=== PATIENT | female | born 1980 | race African-American/Black ===

== ENCOUNTER 2016-06-26 23:34 | Emergency (ER) | payer MEDICAID, OTHER ==
[~2016-06-26] VITALS: Ht 165.1 cm; Wt 110.0 kg
[~2016-06-26 23:34] MED LIST: ADVA230A PO; ALBU8I INH; BACL10TA PO; LISI10 PO; OLAN15 PO; SYNT125T PO; TRAZ100T4 PO
[2016-06-26 23:44] VITALS: BP 119/75; PULSE 75; RESP 18; TEMP 98.4; O2SAT 98
[2016-06-26] MEDS ORDERED: TRAZ300T2 PO (23:53)
[2016-06-26] MEDS ORDERED: HYDR-3583 PO (23:53)
[2016-06-26] MEDS ORDERED: LEVO.125 PO (23:53)
[2016-06-26] MEDS ORDERED: LISI10TA3 PO (23:53)
[2016-06-27 00:43] LABS: AUTOMATED NEUTROPHIL # 3.1 TH/MM3 (1.8-7.7); BASOPHIL # 0.1 TH/MM3 (0-0.2); BASOPHIL % 1.1 % (0.0-2.0); EOSINOPHIL # 0.1 TH/MM3 (0-0.4); EOSINOPHIL % 1.4 % (0.0-4.0); HEMATOCRIT 35.2 % (35.0-46.0); HEMO FLAGS DIFF FINAL; LYMPH % 32.7 % (9.0-44.0); LYMPHOCYTE # 1.7 TH/MM3 (1.0-4.8); MEAN CELL VOLUME 88.7 FL (80.0-100.0); MEAN CORPUSCULAR HEMOGLOBIN 30.8 PG (27.0-34.0); MEAN CORPUSCULAR HGB CONC 34.7 % (32.0-36.0); MONO % 5.8 % (0.0-8.0); PLATELET COUNT 189 TH/MM3 (150-450); RED BLOOD COUNT 3.97 MIL/MM3 (4.00-5.30); RED CELL DISTRIBUTION WIDTH 13.3 % (11.6-17.2); WHITE BLOOD COUNT 5.3 TH/MM3 (4.0-11.0)
[2016-06-27 00:57] LABS: ACETAMINOPHEN LESS THAN 2.0 MCG/ML (10.0-30.0); ALT (GPT) 13 U/L (10-53); ANION GAP 6 MEQ/L (5-15); AST (GOT) 16 U/L (15-37); BICARBONATE 28.7 MEQ/L (21.0-32.0); BLOOD UREA NITROGEN 9 MG/DL (7-18); CHLORIDE 103 MEQ/L (98-107); GLOMERULAR FILTRATION RATE 78 ML/MIN (>89); POTASSIUM 3.5 MEQ/L (3.5-5.1); SODIUM (NA) 138 MEQ/L (136-145)
[2016-06-27 00:58] LABS: ALKALINE PHOSPHATASE 76 U/L (45-117); TOTAL BILIRUBIN ADULT 0.4 MG/DL (0.2-1.0)
--- NOTE | 2016-06-27 01:23 | PD ---
HPI Chief Complaint: Psychiatric Symptoms Time Seen by Provider: 01:08 Travel History International Travel<30 days: No Contact w/Intl Traveler<30days: No Traveled to known affect area: No History of Present Illness HPI 35-year-old female presents under Mistry act initiated by the [employer]. The patient reports over the past 4 days she has been feeling increasingly depressed, having thoughts of suicide, feels she has no purpose. She reports that she has been or urine with the father of her child. Specifically she has plans to hold her breath resolved she can. Metastases to self mutilation of the forearms in the past with a knife. She reports that she currently sees Rajesh the psychiatrist at [facility] and she is prescribed Geodon, Abilify, trazodone and she has been using the medications as prescribed. She denies any alcohol use. She endorses flocculent marijuana use, increased over the past 4 days, secondary to the depression. She denies any hallucinations. She has no medical complaints at this time. PFSH Past Medical History Asthma: Yes Bipolar Disorder: Yes Anxiety: Yes Depression: Yes Cancer: No Cardiovascular Problems: Yes (HTN) COPD: No Diabetes: No Diminished Hearing: No Gastrointestinal Disorders: Yes GERD: Yes Genitourinary: Yes (FSG/PROTEIN UREA) Headaches: No Hypertension: Yes Musculoskeletal: No Neurologic: No Psychiatric: Yes (Schizpphrenia) Reproductive: No Respiratory: Yes (ASTHMA) Immunizations Current: Yes Renal Failure: Yes (kidney disease) Schizophrenia: Yes Seizures: No Thyroid Disease: Yes ?: Not Menopausal: No : 4 Para: 3 Miscarriage: 1 Ectopic : No Ovarian Cysts: No Dilation and Curettage (D&C): Yes Tubal Ligation: Yes Past Surgical History Abdominal Surgery: Yes () Cardiac Surgery: No Section: Yes (X 3) Ear Surgery: No Endocrine Surgery: No Eye Surgery: No Genitourinary Surgery: Yes (RENAL BIOPSY 1998) Gynecologic Surgery: Yes Hysterectomy: No Neurologic Surgery: No Oral Surgery: No Thoracic Surgery: No Other Surgery: No Social History Alcohol Use: No Tobacco Use: Yes (/2 PPD) Substance Use: Yes (MARIJUANNA) Allergies-Medications (Allergen,Severity, Reaction): Coded Allergies: Mellaril (Verified Allergy, Severe, FACIAL SWELLING, 06/26/16) Penicillin (Verified Allergy, Severe, HIVES, 06/26/16) Reported Meds & Prescriptions Reported Meds & Active Scripts Active Reported Hydrocodone-Acetaminophen 10-325 mg Tab 1 Tab PO Q6H PRN Trazodone (Trazodone HCl) 300 Mg Tab 200 Mg PO HS Lisinopril 10 Mg Tab 10 Mg PO DAILY Synthroid (Levothyroxine Sodium) 125 Mcg Tab 125 Mcg PO DAILY Review of Systems Except as stated in HPI: all other systems reviewed are Neg Physical Exam Narrative GENERAL: Well-developed well-nourished female currently sleeping in the hospital bed but easily aroused. SKIN: Warm and dry. Old scars noted on the forearm. HEAD: Atraumatic. Normocephalic. EYES: Pupils equal and round. No scleral icterus. No injection or drainage. ENT: No nasal bleeding or discharge. Mucous membranes pink and moist. NECK: Trachea midline. No JVD. CARDIOVASCULAR: Regular rate and rhythm. No murmur appreciated. RESPIRATORY: No accessory muscle use. Clear to auscultation. Breath sounds equal bilaterally. GASTROINTESTINAL: Abdomen soft, non-tender, nondistended. Hepatic and splenic margins not palpable. MUSCULOSKELETAL: No obvious deformities. No clubbing. No cyanosis. No edema. NEUROLOGICAL: Awake and alert. No obvious cranial nerve deficits. Motor grossly within normal limits. Normal speech. PSYCHIATRIC: Appropriate mood and affect; insight and judgment normal. Data Data Last Documented VS Vital Signs Date Time Temp Pulse Resp B/P Pulse Ox O2 Delivery O2 Flow Rate FiO2 06/26/16 23:49 75 18 06/26/16 23:44 98.4 119/75 98 Orders Complete Blood Count With Diff (06/27/16 00:03) Comprehensive Metabolic Panel (06/27/16 00:03) Psych Screen (06/27/16 00:03) Drug Screen, Random Urine (06/27/16 00:03) Alcohol (Ethanol) (06/27/16 00:03) Salicylates (Aspirin) (06/27/16 00:03) Tylenol (Acetaminophen) (06/27/16 00:03) Labs Laboratory Tests Test 06/27/16 00:20 White Blood Count 5.3 TH/MM3 Red Blood Count 3.97 MIL/MM3 Hemoglobin 12.2 GM/DL Hematocrit 35.2 % Mean Corpuscular Volume 88.7 FL Mean Corpuscular Hemoglobin 30.8 PG Mean Corpuscular Hemoglobin 34.7 % Concent Red Cell Distribution Width 13.3 % Platelet Count 189 TH/MM3 Mean Platelet Volume 9.0 FL Neutrophils (%) (Auto) 59.0 % Lymphocytes (%) (Auto) 32.7 % Monocytes (%) (Auto) 5.8 % Eosinophils (%) (Auto) 1.4 % Basophils (%) (Auto) 1.1 % Neutrophils # (Auto) 3.1 TH/MM3 Lymphocytes # (Auto) 1.7 TH/MM3 Monocytes # (Auto) 0.3 TH/MM3 Eosinophils # (Auto) 0.1 TH/MM3 Basophils # (Auto) 0.1 TH/MM3 CBC Comment DIFF FINAL Differential Comment Sodium Level 138 MEQ/L Potassium Level 3.5 MEQ/L Chloride Level 103 MEQ/L Carbon Dioxide Level 28.7 MEQ/L Anion Gap 6 MEQ/L Blood Urea Nitrogen 9 MG/DL Creatinine 0.98 MG/DL Estimat Glomerular Filtration 78 ML/MIN Rate Random Glucose 79 MG/DL Calcium Level 8.8 MG/DL Total Bilirubin 0.4 MG/DL Aspartate Amino Transf 16 U/L (AST/SGOT) Alanine Aminotransferase 13 U/L (ALT/SGPT) Alkaline Phosphatase 76 U/L Total Protein 7.4 GM/DL Albumin 3.4 GM/DL Salicylates Level 5.4 MG/DL Acetaminophen Level LESS THAN 2.0 MCG/ML Ethyl Alcohol Level LESS THAN 3 MG/DL MDM Medical Decision Making Medical Screen Exam Complete: Yes Emergency Medical Condition: Yes Medical Record Reviewed: Yes Differential Diagnosis Major depressive disorder, depressive disorder not otherwise specified, acute psychosis, substance disorder, adjustment reaction, bipolar disorder, schizophrenia, schizoaffective disorder Narrative Course 35-year-old female presents under Mistry act for psychiatric evaluation. Mental health screening discussed with the patient. Psychiatric screen ordered. Her lab work is unremarkable. She is medically cleared. Diagnosis Primary Impression: Suicidal ideation Ilir Melendez Jun 27, 2016 01:23
[2016-06-27 01:27] LABS: AMPHETAMINE, URINE NEG (NEG); BARBITURATES, URINE NEG (NEG); COCAINE, URINE NEG (NEG)
[2016-06-27 02:34] VITALS: BP 136/77; PULSE 80; RESP 18; O2SAT 97
[2016-06-27] MEDS ORDERED: ACETAMINOPHEN 325 MG TAB PO ONE (02:45)
[2016-06-27 06:19] VITALS: BP 122/75; PULSE 57; RESP 18
[2016-06-27 08:35] VITALS: BP 122/75; PULSE 57; RESP 18
== END 2016-06-27 09:52 ==
LOC: NEPB 23:34 → NEPJ 06-27 09:52
DX: R45.851 Suicidal ideations (principal); F32.9 Major depressive disorder, single episode, unspecified; I10 Essential (primary) hypertension; F31.9 Bipolar disorder, unspecified; F20.9 Schizophrenia, unspecified; F17.210 Nicotine dependence, cigarettes, uncomplicated; F12.10 Cannabis abuse, uncomplicated
CPT/HCPCS: 80053; 80307; 85025; 99283

== ENCOUNTER 2016-11-29 12:40 | Emergency (ER) | payer MEDICAID, OTHER ==
[~2016-11-29] VITALS: Ht 170.2 cm; Wt 130.0 kg
[~2016-11-29 12:40] MED LIST changes: -ADVA230A PO; -ALBU8I INH; -BACL10TA PO; +HYDR-3583 PO; +LEVO.125 PO; -LISI10 PO; +LISI10TA3 PO; -OLAN15 PO; -SYNT125T PO; -TRAZ100T4 PO; +TRAZ300T2 PO
[2016-11-29 12:52] VITALS: BP 124/78; PULSE 80; RESP 18; TEMP 98.5; O2SAT 98
[2016-11-29 12:57] VITALS: BP 124/78; PULSE 80; RESP 18; TEMP 98.5; O2SAT 98
--- NOTE | 2016-11-29 13:21 | PD ---
HPI Chief Complaint: Psychiatric Symptoms Time Seen by Provider: 13:01 Travel History International Travel<30 days: No Contact w/Intl Traveler<30days: No Traveled to known affect area: No History of Present Illness HPI The patient was seen and examined in the presence of the nurse. This patient has history of schizophrenia and says she's been off her meds for months. She complains of suicidal ideation for one day's time. Severity of symptoms moderate. She thought she might cut herself with a knife but she didn't actually do that. Denies alcohol or drug use. Symptoms have no alleviating factors. PFSH Past Medical History Asthma: Yes Bipolar Disorder: Yes Anxiety: Yes Depression: Yes Cancer: No Cardiovascular Problems: Yes (HTN) COPD: No Diabetes: No Diminished Hearing: No Gastrointestinal Disorders: Yes GERD: Yes Genitourinary: Yes (FSG/PROTEIN UREA) Headaches: No Hypertension: Yes Musculoskeletal: No Neurologic: No Psychiatric: Yes (Schizpphrenia) Reproductive: No Respiratory: Yes (ASTHMA) Immunizations Current: Yes Renal Failure: Yes (kidney disease) Schizophrenia: Yes Seizures: No Thyroid Disease: Yes Tetanus Vaccination: < 5 Years Influenza Vaccination: Yes ?: Not Menopausal: No : 3 Para: 3 Miscarriage: 1 Ectopic : No Ovarian Cysts: No Dilation and Curettage (D&C): Yes Tubal Ligation: Yes Past Surgical History Abdominal Surgery: Yes () Cardiac Surgery: No Section: Yes (X 3) Ear Surgery: No Endocrine Surgery: No Eye Surgery: No Genitourinary Surgery: Yes (RENAL BIOPSY 1998) Gynecologic Surgery: Yes Hysterectomy: No Neurologic Surgery: No Oral Surgery: No Thoracic Surgery: No Other Surgery: No Social History Alcohol Use: No Tobacco Use: Yes (1/2 PPD) Substance Use: Yes (MARIJUANNA, JAMEEAKKA) Allergies-Medications (Allergen,Severity, Reaction): Coded Allergies: penicillin G (Unverified Allergy, Severe, HIVES, 11/02/16) thioridazine (Unverified Allergy, Severe, FACIAL SWELLING, 11/02/16) Reported Meds & Prescriptions Reported Meds & Active Scripts Active Reported Hydrocodone-Acetaminophen 10-325 mg Tab 1 Tab PO Q6H PRN Trazodone (Trazodone HCl) 300 Mg Tab 200 Mg PO HS Lisinopril 10 Mg Tab 10 Mg PO DAILY Synthroid (Levothyroxine Sodium) 125 Mcg Tab 125 Mcg PO DAILY Review of Systems General / Constitutional: No: Fever Eyes: No: Visual changes HENT: No: Headaches Cardiovascular: No: Chest Pain or Discomfort Respiratory: No: Shortness of Breath Gastrointestinal: No: Abdominal Pain Genitourinary: No: Dysuria Musculoskeletal: No: Pain Skin: No Rash Neurologic: No: Weakness Psychiatric: Positive: Depression, Suicidal Ideations, Disorder of Thought Endocrine: No: Polydipsia Hematologic/Lymphatic: No: Easy Bruising Physical Exam Narrative GENERAL: Well-nourished, well-developed patient in no apparent distress. SKIN: Focused skin assessment reveals no rash and nodules. Skin is Warm and dry. HEAD: Atraumatic. Normocephalic. EYES: Pupils equal and round. No scleral icterus. No injection or drainage. ENT: No nasal bleeding or discharge. Mucous membranes pink and moist. NECK: Trachea midline. No JVD. CARDIOVASCULAR: Regular rate and rhythm. No murmur appreciated. RESPIRATORY: No accessory muscle use. Clear to auscultation. Breath sounds equal bilaterally. GASTROINTESTINAL: Abdomen soft, non-tender, nondistended. Hepatic and splenic margins not palpable. MUSCULOSKELETAL: No obvious deformities. No clubbing. No cyanosis. No edema. NEUROLOGICAL: Awake and alert. No obvious cranial nerve deficits. Motor grossly within normal limits. Normal speech. PSYCHIATRIC: Depressed mood and flat affect; insight and judgment poor. Data Data Last Documented VS Vital Signs Date Time Temp Pulse Resp B/P (MAP) Pulse Ox O2 Delivery O2 Flow Rate FiO2 11/29/16 12:57 98.5 80 18 124/78 (93) 98 Room Air Orders Orders Complete Blood Count With Diff (11/29/16 13:16) Basic Metabolic Panel (Bmp) (11/29/16 13:16) Psych Screen (11/29/16 13:16) Drug Screen, Random Urine (11/29/16 13:16) Alcohol (Ethanol) (11/29/16 13:16) Labs Laboratory Tests Test 11/29/16 13:20 White Blood Count 4.4 TH/MM3 Red Blood Count 4.21 MIL/MM3 Hemoglobin 13.0 GM/DL Hematocrit 39.0 % Mean Corpuscular Volume 92.7 FL Mean Corpuscular Hemoglobin 31.0 PG Mean Corpuscular Hemoglobin Concent 33.4 % Red Cell Distribution Width 13.8 % Platelet Count 199 TH/MM3 Mean Platelet Volume 9.6 FL Neutrophils (%) (Auto) 44.1 % Lymphocytes (%) (Auto) 47.3 % Monocytes (%) (Auto) 5.8 % Eosinophils (%) (Auto) 2.4 % Basophils (%) (Auto) 0.4 % Neutrophils # (Auto) 1.9 TH/MM3 Lymphocytes # (Auto) 2.1 TH/MM3 Monocytes # (Auto) 0.3 TH/MM3 Eosinophils # (Auto) 0.1 TH/MM3 Basophils # (Auto) 0.0 TH/MM3 CBC Comment DIFF FINAL Differential Comment Blood Urea Nitrogen 9 MG/DL Creatinine 1.08 MG/DL Random Glucose 99 MG/DL Calcium Level 8.9 MG/DL Sodium Level 138 MEQ/L Potassium Level 4.0 MEQ/L Chloride Level 106 MEQ/L Carbon Dioxide Level 26.9 MEQ/L Anion Gap 5 MEQ/L Estimat Glomerular Filtration Rate 70 ML/MIN Urine Opiates Screen NEG Urine Barbiturates Screen NEG Urine Amphetamines Screen NEG Urine Benzodiazepines Screen NEG Urine Cocaine Screen NEG Urine Cannabinoids Screen POS Ethyl Alcohol Level LESS THAN 3 MG/DL MDM Medical Decision Making Medical Screen Exam Complete: Yes Emergency Medical Condition: Yes Medical Record Reviewed: Yes Differential Diagnosis Suicidal ideation, depression, adjustment disorder, schizophrenia Narrative Course I have reviewed the patient's electronic medical record. Patient's been here multiple times for psychiatric evaluation I've ordered medical clearance workup CBC is normal Metabolic profile is normal Alcohol level is negative Patient a tubal ligation Drug screen positive for marijuana Have ordered psychiatric evaluation, the patient specifically requests it. She is is medically stable as can be made. If Psychiatry clears her I will discharge her home to follow-up as outpatient, otherwise admitted per psych Diagnosis Primary Impression: Suicidal ideation Additional Impressions: history of polysubstance abuse Schizophrenia Qualified Codes: F20.9 - Schizophrenia, unspecified Bryan Leroy MD Nov 29, 2016 13:21
[2016-11-29 13:43] LABS: AUTOMATED NEUTROPHIL # 1.9 TH/MM3 (1.8-7.7); BASOPHIL % 0.4 % (0.0-2.0); EOSINOPHIL # 0.1 TH/MM3 (0-0.4); EOSINOPHIL % 2.4 % (0.0-4.0); HEMO FLAGS DIFF FINAL; LYMPH % 47.3 % (9.0-44.0); LYMPHOCYTE # 2.1 TH/MM3 (1.0-4.8); MEAN CELL VOLUME 92.7 FL (80.0-100.0); MEAN CORPUSCULAR HGB CONC 33.4 % (32.0-36.0); MONO % 5.8 % (0.0-8.0); NEUT % 44.1 % (16.0-70.0); PLATELET COUNT 199 TH/MM3 (150-450); RED BLOOD COUNT 4.21 MIL/MM3 (4.00-5.30); RED CELL DISTRIBUTION WIDTH 13.8 % (11.6-17.2); WHITE BLOOD COUNT 4.4 TH/MM3 (4.0-11.0)
[2016-11-29 14:18] LABS: ANION GAP 5 MEQ/L (5-15); BICARBONATE 26.9 MEQ/L (21.0-32.0); BLOOD UREA NITROGEN 9 MG/DL (7-18); CHLORIDE 106 MEQ/L (98-107); GLOMERULAR FILTRATION RATE 70 ML/MIN (>89); SODIUM (NA) 138 MEQ/L (136-145)
[2016-11-29 14:35] LABS: ALCOHOL LESS THAN 3 MG/DL (0-5)
--- NOTE | 2016-11-29 18:40 | PD ---
History of Present Illness Chief Complaint: Psychiatric Symptoms Time Seen by Provider: 18:30 Travel History International Travel<30 Days: No Contact w/Intl Traveler<30days: No Known affected area: No Legal Status Legal Status: Fede Act Mistry Act Signed By: Darvin Mistry Act Comment: Signed by [facility] Officer Rachelle Jung #[id number]. History of Present Illness: 35-year-old with history of schizophrenia, off medicines and currently suicidal. Patient is calm, pleasant and cooperative. She wants to get back on her medicines which include Trilafon/perphenazine, Trileptal and trazodone. This physician wrote out prescriptions for a 10 day supply and the patient has a follow up appointment. She is verbally maría elena for safety and has no current suicidal or homicidal ideation, plan or intent. Her cognition is intact and she is competent. She would like to follow up on an outpatient basis at this physician agrees. PFSH Past Medical History Asthma: Yes Bipolar Disorder: Yes Anxiety: Yes Depression: Yes Cancer: No Cardiovascular Problems: Yes (HTN) COPD: No Diabetes: No Diminished Hearing: No Gastrointestinal Disorders: Yes GERD: Yes Genitourinary: Yes (FSG/PROTEIN UREA) Headaches: No Hypertension: Yes Musculoskeletal: No Neurologic: No Psychiatric: Yes (Schizpphrenia) Reproductive: No Respiratory: Yes (ASTHMA) Immunizations Current: Yes Renal Failure: Yes (kidney disease) Schizophrenia: Yes Seizures: No Thyroid Disease: Yes Tetanus Vaccination: < 5 Years Influenza Vaccination: Yes ?: Not Menopausal: No : 3 Para: 3 Miscarriage: 1 Ectopic : No Ovarian Cysts: No Dilation and Curettage (D&C): Yes Tubal Ligation: Yes Past Surgical History Abdominal Surgery: Yes () Cardiac Surgery: No Section: Yes (X 3) Ear Surgery: No Endocrine Surgery: No Eye Surgery: No Genitourinary Surgery: Yes (RENAL BIOPSY 1998) Gynecologic Surgery: Yes Hysterectomy: No Neurologic Surgery: No Oral Surgery: No Thoracic Surgery: No Other Surgery: No Psychiatric History Psychiatric History Hx Psychiatric Treatment: States that she has been treated at [facility] in the past. Patient stated that it was a very positive experience. Patient stated that she has received psychiatric tx in the past from [facility]. She stated that she has not had medication in the past 4 mons. Per pt, she has an appt scheduled for Dec 03 at 15:40 at [address] [facility] [address] with BEKAH Cain. History of Inpatient Treatment: Yes Social History Hx Alcohol Use: No Hx Tobacco Use: Yes (1/2 PPD) Hx Substance Use: Yes (Hx Marijuanna & Flakka ) Substance Use Type: Marijuana, Other Other Substances Used: COCAINE, MARIJUANA, FLAKKA Hx of Substance Use Treatment: No Allergies-Medications (Allergen,Severity, Reaction): Coded Allergies: penicillin G (Unverified Allergy, Severe, HIVES, 11/02/16) thioridazine (Unverified Allergy, Severe, FACIAL SWELLING, 11/02/16) Reported Meds & Prescriptions Reported Meds & Active Scripts Active Reported Hydrocodone-Acetaminophen 10-325 mg Tab 1 Tab PO Q6H PRN Trazodone (Trazodone HCl) 300 Mg Tab 200 Mg PO HS Lisinopril 10 Mg Tab 10 Mg PO DAILY Synthroid (Levothyroxine Sodium) 125 Mcg Tab 125 Mcg PO DAILY Review of Systems Except as stated in HPI: all other systems reviewed are Neg Exam Alert: Yes [place]: Person, Place, Date, Situation Mood: Calm Affect: Appropriate Speech: Clear Eye Contact: Normal Memory Intact: Immediate, Recent, Remote Insight/Judgement Adequate MDM Medical Decision Making Medical Record Reviewed: Yes Assessment/Plan Patient seen at bedside, medical record reviewed and case discussed with nurse Jessica. Prescription given for 10 day supply of each medicine. Patient verbally maría elena for safety and has follow up appointment made for her. She does not qualify for Mistry act or involuntary psychiatric hospitalization. Orders Orders Complete Blood Count With Diff (11/29/16 13:16) Basic Metabolic Panel (Bmp) (11/29/16 13:16) Psych Screen (11/29/16 13:16) Drug Screen, Random Urine (11/29/16 13:16) Alcohol (Ethanol) (11/29/16 13:16) Diet Regular Basic (11/29/16 Dinner) Results Vital Signs Date Time Temp Pulse Resp B/P (MAP) Pulse Ox O2 Delivery O2 Flow Rate FiO2 11/29/16 12:57 98.5 80 18 124/78 (93) 98 Room Air 11/29/16 12:52 98.5 80 18 124/78 (93) 98 Laboratory Tests Test 11/29/16 13:20 White Blood Count 4.4 Red Blood Count 4.21 Hemoglobin 13.0 Hematocrit 39.0 Mean Corpuscular Volume 92.7 Mean Corpuscular Hemoglobin 31.0 Mean Corpuscular Hemoglobin Concent 33.4 Red Cell Distribution Width 13.8 Platelet Count 199 Mean Platelet Volume 9.6 Neutrophils (%) (Auto) 44.1 Lymphocytes (%) (Auto) 47.3 Monocytes (%) (Auto) 5.8 Eosinophils (%) (Auto) 2.4 Basophils (%) (Auto) 0.4 Neutrophils # (Auto) 1.9 Lymphocytes # (Auto) 2.1 Monocytes # (Auto) 0.3 Eosinophils # (Auto) 0.1 Basophils # (Auto) 0.0 CBC Comment DIFF FINAL Differential Comment Blood Urea Nitrogen 9 Creatinine 1.08 Random Glucose 99 Calcium Level 8.9 Sodium Level 138 Potassium Level 4.0 Chloride Level 106 Carbon Dioxide Level 26.9 Anion Gap 5 Estimat Glomerular Filtration Rate 70 Urine Opiates Screen NEG Urine Barbiturates Screen NEG Urine Amphetamines Screen NEG Urine Benzodiazepines Screen NEG Urine Cocaine Screen NEG Urine Cannabinoids Screen POS Ethyl Alcohol Level LESS THAN 3 Diagnosis Primary Impression: Acute adjustment disorder with mixed disturbance of emotions and conduct Sha Wu MD Nov 29, 2016 18:39
--- NOTE | 2016-11-29 18:58 | PD ---
Physical Exam Time Seen by Provider: 18:58 Data Data Last Documented VS Vital Signs Date Time Temp Pulse Resp B/P (MAP) Pulse Ox O2 Delivery O2 Flow Rate FiO2 11/29/16 12:57 98.5 80 18 124/78 (93) 98 Room Air Orders Orders Complete Blood Count With Diff (11/29/16 13:16) Basic Metabolic Panel (Bmp) (11/29/16 13:16) Psych Screen (11/29/16 13:16) Drug Screen, Random Urine (11/29/16 13:16) Alcohol (Ethanol) (11/29/16 13:16) Diet Regular Basic (11/29/16 Dinner) Labs Laboratory Tests Test 11/29/16 13:20 White Blood Count 4.4 TH/MM3 Red Blood Count 4.21 MIL/MM3 Hemoglobin 13.0 GM/DL Hematocrit 39.0 % Mean Corpuscular Volume 92.7 FL Mean Corpuscular Hemoglobin 31.0 PG Mean Corpuscular Hemoglobin Concent 33.4 % Red Cell Distribution Width 13.8 % Platelet Count 199 TH/MM3 Mean Platelet Volume 9.6 FL Neutrophils (%) (Auto) 44.1 % Lymphocytes (%) (Auto) 47.3 % Monocytes (%) (Auto) 5.8 % Eosinophils (%) (Auto) 2.4 % Basophils (%) (Auto) 0.4 % Neutrophils # (Auto) 1.9 TH/MM3 Lymphocytes # (Auto) 2.1 TH/MM3 Monocytes # (Auto) 0.3 TH/MM3 Eosinophils # (Auto) 0.1 TH/MM3 Basophils # (Auto) 0.0 TH/MM3 CBC Comment DIFF FINAL Differential Comment Blood Urea Nitrogen 9 MG/DL Creatinine 1.08 MG/DL Random Glucose 99 MG/DL Calcium Level 8.9 MG/DL Sodium Level 138 MEQ/L Potassium Level 4.0 MEQ/L Chloride Level 106 MEQ/L Carbon Dioxide Level 26.9 MEQ/L Anion Gap 5 MEQ/L Estimat Glomerular Filtration Rate 70 ML/MIN Urine Opiates Screen NEG Urine Barbiturates Screen NEG Urine Amphetamines Screen NEG Urine Benzodiazepines Screen NEG Urine Cocaine Screen NEG Urine Cannabinoids Screen POS Ethyl Alcohol Level LESS THAN 3 MG/DL MDM Medical Record Reviewed: Yes Supervised Visit with KASSY: No Narrative Course Patient has been seen and evaluated by psychiatry. No further medical needs at this time. Patient will be discharged. Diagnosis Primary Impression: Acute adjustment disorder with mixed disturbance of emotions and conduct Referrals: [facility] (Out patient) Disposition: 01 DISCHARGE HOME Condition: Stable Fouzia Rock Nov 29, 2016 18:58
== END 2016-11-29 19:30 | disposition home or self-care (01) ==
LOC: NEPD 12:40 → NEPJ 19:30
DX: F43.25 Adjustment disorder with mixed disturbance of emotions and conduct (principal); F20.9 Schizophrenia, unspecified; R45.851 Suicidal ideations; J45.909 Unspecified asthma, uncomplicated; F31.9 Bipolar disorder, unspecified; I10 Essential (primary) hypertension; K21.9 Gastro-esophageal reflux disease without esophagitis; N28.9 Disorder of kidney and ureter, unspecified; F41.9 Anxiety disorder, unspecified; Z79.899 Other long term (current) drug therapy
CPT/HCPCS: 80048; 80307; 85025; 99284